=== PATIENT | male | born 1960 | race Caucasian/White ===

== ENCOUNTER → 2018-07-15 | Outpatient (CLI) | payer OTHER ==
[2018-07-15 17:38] LABS: HCT 47.2 % (39.0-53.0); MCH 29.6 pg (25.0-35.0); MCV 87.1 fL (80.0-100.0); Mean Platelet Volume 6.4; Platelet Count 262 k/uL (150-450); RBC 5.42 m/uL (4.30-5.90); RDW 13.4 % (11.5-15.5); WBC 9.6 k/uL (3.8-10.6)
[2018-07-15 23:27] LABS: Albumin 4.8 g/dL (3.80-4.90); Albumin/Globulin Ratio 2.29 (1.20-2.10); Anion Gap 11.1 mmol/L (4.00-12.00); Calcium 10.3 mg/dL (8.7-10.3); Carbon Dioxide 28.9 mmol/L (21.6-31.8); Globulin 2.1 g/dL (1.6-3.3); Potassium 3.8 mmol/L (3.5-5.5); Total Bilirubin 0.7 mg/dL (0.3-1.2); Total Protein 6.9 g/dL (6.2-8.2)
== END ==
LOC: LABWHC1 16:39
PROVIDERS: ATTEND Internal Medicine Endocrinology, Diabetes & Metabolism
DX: E29.1 Testicular hypofunction (principal)
CPT/HCPCS: 36415; 80053; 83001; 83002; 84146; 84153; 84403; 84443; 85027

== ENCOUNTER → 2018-09-12 | Outpatient (CLI) | payer OTHER ==
--- NOTE | 2018-09-15 09:56 | US ---
EXAMINATION TYPE: US scrotum with doppler. Grayscale and color Doppler Duplex imaging performed of t he scrotum. DATE OF EXAM: 09/12/2018 COMPARISON: NONE CLINICAL HISTORY: Right testicular mass N50.811. Pain left testicle, lump right testicle EXAM MEASUREMENTS: TESTICLES: Right Testicle: 2.9 x 1.7 x 1.8 cm Left Testicle: 3.1 x 1.2 x 1.9 cm EPIDIDYMIS HEAD: Right Epididymis: 1.0 cm Left Epididymis: 0.7 cm Doppler performed to assess for testicular vascularity; good bilateral color flow and waveforms are s een. There is no evidence of testicular torsion. Presence of hydroceles: medial right testicle = 4.4 x 1.3 cm Presence of varicoceles: increased vascularity lateral to left testicle Tubular structure noted lateral to right testicle Heterogeneous hypoechoic area inferior to right testicle Tubular structures with echogenic material noted within posterior to left testicle No suspicious intratesticular mass bilaterally. Small to moderate-sized right scrotal fluid collectio n or hydrocele that is nonsimple. Adjacent to right testicle tubular structure with adjacent vascular ity. Small simple left scrotal fluid collection or hydroceles. Prominent left scrotal tubular structu re with vascularity noted. IMPRESSION: No suspicious intratesticular mass bilaterally. Tubular shaped right scrotal cystic struc ture could reflect varicocele though typically shows increased blood flow diffusely with more promine nce on Valsalva. This structure does not show these findings.
== END | disposition home or self-care (01) ==
LOC: RADUSWWP 15:16
PROVIDERS: ATTEND General Practice
DX: L72.8 Other follicular cysts of the skin and subcutaneous tissue (principal)
CPT/HCPCS: 76870; 93975

== ENCOUNTER → 2018-10-31 | Outpatient (CLI) | payer OTHER ==
[2018-10-31 13:31] LABS: HCT 50.9 % (39.0-53.0); HGB 16.8 gm/dL (13.0-17.5); MCH 28.8 pg (25.0-35.0); MCV 87.1 fL (80.0-100.0); Mean Platelet Volume 6.3; Platelet Count 298 k/uL (150-450); RBC 5.85 m/uL (4.30-5.90); RDW 12.5 % (11.5-15.5)
== END ==
LOC: LABWHC1 12:35
PROVIDERS: ATTEND Internal Medicine Endocrinology, Diabetes & Metabolism
DX: E29.1 Testicular hypofunction (principal)
CPT/HCPCS: 36415; 84153; 84403; 85027